=== PATIENT | female | born 1950 | race Caucasian/White ===

== ENCOUNTER → 2016-08-07 | Outpatient (CLI) | payer BC ==
--- NOTE | ~2016-08-07 | BD1 ---
[facility] A Service of [place] [facility] RADIOLOGY TEXT RESULTS PATIENT: NAKITA IVORY LOCATION: SRA : 54 UNIT #: [id number] AGE: [address]: Magi Lofton MD SEX: F ORDER DR: [id number] [address] [address] [id number] O MR#: [id number] Acc #: [id number] NAME: NAKITA IVORY : 1950 SEX: F STUDY DATE/TIME: 08/07/2016 10:40 UNIT: SRAD ROOM: STUDY DESCRIPTION: BD Dexa Bone Dens 1+ Site Attending Physician: Magi Lofton M.D. Referring Physician: Magi Lofton M.D. Ordering Physician: Magi Lofton M.D. Primary Care Physician: Magi Lofton M.D. MEDICAL IMAGING REPORT This report is preliminary unless electronic signature is present. EXAM DXA scan 08/07/2016 HISTORY Status post menopause with no hormone replacement therapy. Osteopenia. FINDINGS Bone mineral density in the lumbar spine from L1-L4 is 1.198 g/cm2 which is 0.1 standard deviations above the mean when compared to the young adult reference population which is within the range of normal. This is 1.2 standard deviations above the mean when compared to the age-matched population. Bone mineral density in the left femoral neck was 0.863 g/cm2 which is 1.3 standard deviations below the mean when compared to the young adult reference population which is characteristic of osteopenia. This is 0.1 standard deviations below the mean when compared to the age-matched population. Bone mineral density in the right femoral neck was 0.846 g/cm2 which is 1.4 standard deviations below the mean when compared to the young adult reference population which is characteristic of osteopenia. This is 0.3 standard deviations below the mean when compared to the age-matched population. IMPRESSION Bone mineral density in the lumbar spine within the range of normal and within the hips bilaterally characteristic of osteopenia. Dictated by... Nimesh Prater M.D. THIS IS AN ELECTRONICALLY VERIFIED REPORT Nimesh Prater M.D. at 08/08/2016 8:07 AM JANINA/iftikhar [facility] A Service of [place] [facility] RADIOLOGY TEXT RESULTS PATIENT: NAKITA IVORY LOCATION: [facility] : [birth year] UNIT #: [id number] AGE: [address]: Magi Lofton MD SEX: F ORDER DR: TD: 08/07/2016 13:49 JOB #: [id number] MEDICAL IMAGING REPORT
== END | disposition home or self-care (01) ==
LOC: SRAD 10:29
DX: Z13.820 Encounter for screening for osteoporosis (principal); Z78.0 Asymptomatic menopausal state
CPT/HCPCS: 77080